=== PATIENT | female | born 1995 | race Caucasian/White ===

== ENCOUNTER 2019-05-10 22:31 | Emergency (ER) | payer OTHER ==
[2019-05-11] MEDS: LORAZEPAM 1 MG TAB PO (01:17)
[2019-05-11] MEDS: predniSONE 20 MG TAB PO (01:18)
== END 2019-05-11 01:30 | disposition home or self-care (01) ==
LOC: FTE 22:31
DX: R22.32 Localized swelling, mass and lump, left upper limb (principal)
CPT/HCPCS: 81025; 99283